=== PATIENT | female | born 1995 | race African-American/Black ===

== ENCOUNTER 2019-03-23 14:12 | Outpatient (CLI) | payer OTHER ==
[2019-03-23 14:35] LABS: PLATELET COUNT 371 K/uL (152-353)
[2019-03-23 14:50] LABS: POTASSIUM 4.1 mmol/L (3.6-5.2)
== END 2019-03-23 19:48 | disposition home or self-care (01) ==
LOC: LABW 14:12
PROVIDERS: Nurse Practitioner Family
DX: G47.8 Other sleep disorders (principal); M06.4 Inflammatory polyarthropathy; M54.2 Cervicalgia; M54.5 Low back pain; M79.7 Fibromyalgia
CPT/HCPCS: 36415; 80053; 85027; 85651; 86140